=== PATIENT | male | born 1990 | race African-American/Black ===

== ENCOUNTER 2016-10-14 01:58 | Emergency (ER) | payer SELFPAY ==
[~2016-10-14] VITALS: Ht 165.1 cm; Wt 66.4 kg
[2016-10-14] MEDS ORDERED: PERCOCET 5/325M1 TAB PO (03:06)
[2016-10-14] MEDS ORDERED: AUGMENTIN875TAB PO (03:06)
[2016-10-14 03:36] VITALS: BP 130/70
== END 2016-10-14 03:34 | disposition home or self-care (01) | DRG 153 ==
LOC: ED 01:58
DX: H66.92 Otitis media, unspecified, left ear (principal); F17.210 Nicotine dependence, cigarettes, uncomplicated

== ENCOUNTER 2016-12-11 23:30 | Emergency (ER) | payer SELFPAY ==
[~2016-12-11] VITALS: Ht 165.1 cm; Wt 68.4 kg
[~2016-12-11 23:30] MED LIST: AUGMENTIN875TAB PO; PERCOCET 5/325M1 TAB PO
[2016-12-12] MEDS ORDERED: TRAMADOL HYDROC50 MG PO (00:22)
[2016-12-12 00:25] VITALS: BP 127/63
== END 2016-12-12 00:28 | disposition home or self-care (01) | DRG 605 ==
LOC: ED 23:30
DX: S60.221A Contusion of right hand, initial encounter (principal); W22.09XA Striking against other stationary object, initial encounter; Y92.009 Unspecified place in unspecified non-institutional (private) residence as the place of occurrence of the external cause

== ENCOUNTER 2017-04-10 23:03 | Emergency (ER) | payer SELFPAY ==
[~2017-04-10] VITALS: Ht 165.1 cm; Wt 64.6 kg
[~2017-04-10 23:03] MED LIST changes: +TRAMADOL HYDROC50 MG PO
[2017-04-11] MEDS ORDERED: MEDDOSEPAK PO (00:23)
[2017-04-11] MEDS ORDERED: PEPCID20 MG PO (00:23)
[2017-04-11] MEDS ORDERED: BENADRYL 50MG C50 MG PO (00:23)
[2017-04-11 00:38] VITALS: BP 132/58
== END 2017-04-11 00:40 | disposition home or self-care (01) | DRG 607 ==
LOC: ED 23:03
DX: L23.5 Allergic contact dermatitis due to other chemical products (principal); L29.9 Pruritus, unspecified; Y93.89 Activity, other specified; Y92.89 Other specified places as the place of occurrence of the external cause

== ENCOUNTER 2017-09-19 20:38 | Emergency (ER) | payer SELFPAY ==
[~2017-09-19] VITALS: Ht 165.1 cm; Wt 65.5 kg
[~2017-09-19 20:38] MED LIST changes: +BENADRYL 50MG C50 MG PO; +MEDDOSEPAK PO; +PEPCID20 MG PO
[2017-09-19 21:29] LABS: URINE BILIRUBIN - DIPSTICK NEGATIVE (NEGATIVE); URINE BLOOD DIPSTICK NEGATIVE (NEGATIVE); URINE CLARITY SL CLOUDY; URINE COLOR YELLOW; URINE GLUCOSE - DIPSTICK NEGATIVE (NEGATIVE); URINE KETONE NEGATIVE (NEGATIVE); URINE LEUK ESTERASE SMALL (NEGATIVE); URINE NITRITE - DIPSTICK NEGATIVE (Negative); URINE PROTEIN - DIPSTICK NEGATIVE (NEG-TRACE); URINE SPECIFIC GRAVITY >=1.030; URINE UROBILINOGEN - DIPSTICK 0.2 E.U./dL (0.2)
[2017-09-19 21:35] LABS: URINE WBC 50-100 WBC/hpf (0-5)
[2017-09-19] MEDS ORDERED: BACTRIM DS1 TAB PO (21:46)
[2017-09-19 22:31] VITALS: BP 127/80
== END 2017-09-19 22:32 | disposition home or self-care (01) | DRG 690 ==
LOC: ED 20:38
PROVIDERS: Emergency Medicine
DX: N34.2 Other urethritis (principal); F17.210 Nicotine dependence, cigarettes, uncomplicated

== ENCOUNTER 2018-07-01 20:02 | Emergency (ER) | payer SELFPAY ==
[~2018-07-01] VITALS: Ht 165.1 cm; Wt 66.0 kg
[~2018-07-01 20:02] MED LIST changes: +BACTRIM DS1 TAB PO
[2018-07-01 20:59] LABS: HEMOGLOBIN 14.8 g/dl (14.0-18.0); IMMATURE GRANULOCYTES 0.3 % (0.0-5.0); MEAN CELL VOLUME 98.2 fL CALC (80.0-100.0); MEAN CORPUSCULAR HGB 33.8 pG CALC (26.0-32.0); MEAN CORPUSCULAR HGB CONC 34.4 g/L CALC (32.0-36.0); NEUT# 4.44 thou/uL (1.82-7.42); RED BLOOD COUNT 4.38 mill/uL (4.70-6.10); RED CELL DISTRI WIDTH 12.8 % (11.5-15.5)
[2018-07-01 21:02] LABS: URINE BLOOD DIPSTICK NEGATIVE (NEGATIVE); URINE COLOR YELLOW; URINE GLUCOSE - DIPSTICK NEGATIVE (NEGATIVE); URINE KETONE TRACE mg/dL (NEGATIVE); URINE LEUK ESTERASE NEGATIVE (NEGATIVE); URINE NITRITE - DIPSTICK NEGATIVE (Negative); URINE PROTEIN - DIPSTICK 30 mg/dL (NEG-TRACE); URINE SPECIFIC GRAVITY >=1.030; URINE UROBILINOGEN - DIPSTICK 0.2 E.U./dL (0.2)
[2018-07-01 21:19] LABS: URINE BILIRUBIN - DIPSTICK NEGATIVE (NEGATIVE)
[2018-07-01 21:23] LABS: ALBUMIN 5.1 g/dL (3.2-5.0); ALKALINE PHOSPHATASE 75 u/l (38-126); AMYLASE 43 u/l (30-110); ANION GAP 18 (6-22 (CALC)); BILIRUBIN, TOTAL 0.6 mg/dL (0.0-1.4); BUN 15 mg/dL (9-20); BUN/CREATININE RATIO 13 (12-20 (CALC)); CARBON DIOXIDE 26 mmol/l (22-30); CHLORIDE 100 mmol/l (95-108); CREATININE 1.1 mg/dL (0.7-1.3); GFR > 60 ML/MIN (>=60 (CALC)); GFR FOR AFR.AMER. > 60 ML/MIN (>=60 (CALC)); LIPASE 39 u/l (23-300); POTASSIUM 4.4 mmol/l (3.5-5.1); SGOT/AST 46 u/l (17-59); SODIUM 139 mmol/l (137-146)
[2018-07-01 21:24] LABS: URINE BACTERIA FEW hpf; URINE MUCUS MANY hpf (NONE-FEW); URINE WBC 0-2 WBC/hpf (0-5)
[2018-07-01] MEDS ORDERED: BACTRIM DS1 TAB PO ×2 (22:49→23:30)
[2018-07-01] MEDS ORDERED: CLONIDINE0.1 MG PO ×2 (22:49→23:30)
[2018-07-01 23:17] VITALS: BP 160/90
== END 2018-07-01 23:35 | disposition home or self-care (01) | DRG 392 ==
LOC: ED 20:02
PROVIDERS: Emergency Medicine
DX: K52.9 Noninfective gastroenteritis and colitis, unspecified (principal); I10 Essential (primary) hypertension; F17.200 Nicotine dependence, unspecified, uncomplicated
CPT/HCPCS: Q9967

== ENCOUNTER 2018-08-28 18:43 | Emergency (ER) | payer SELFPAY ==
[~2018-08-28] VITALS: Ht 165.1 cm; Wt 66.0 kg
[~2018-08-28 18:43] MED LIST changes: +CLONIDINE0.1 MG PO
[2018-08-28] MEDS ORDERED: AMOXICILLIN500 MG PO (19:51)
[2018-08-28 20:08] VITALS: BP 131/80
== END 2018-08-28 20:08 | disposition home or self-care (01) | DRG 603 ==
LOC: ED 18:43
DX: L08.9 Local infection of the skin and subcutaneous tissue, unspecified (principal); S61.212A Laceration without foreign body of right middle finger without damage to nail, initial encounter; F17.210 Nicotine dependence, cigarettes, uncomplicated; I10 Essential (primary) hypertension; W26.8XXA Contact with other sharp object(s), not elsewhere classified, initial encounter; Y93.89 Activity, other specified; Y92.89 Other specified places as the place of occurrence of the external cause; Y99.0 Civilian activity done for income or pay

== ENCOUNTER 2018-10-04 08:47 | Emergency (ER) | payer OTHER ==
[~2018-10-04] VITALS: Ht 165.1 cm; Wt 70.0 kg
[~2018-10-04 08:47] MED LIST changes: +AMOXICILLIN500 MG PO
[2018-10-04] MEDS ORDERED: TORADOL PO (10:39)
[2018-10-04] MEDS ORDERED: FLEXERIL PO (10:39)
[2018-10-04 10:42] VITALS: BP 137/73
== END 2018-10-04 10:41 | disposition home or self-care (01) | DRG 556 ==
LOC: ED 08:47
DX: M25.552 Pain in left hip (principal); M25.562 Pain in left knee; T14.8XXA Other injury of unspecified body region, initial encounter; I10 Essential (primary) hypertension; F17.210 Nicotine dependence, cigarettes, uncomplicated; V43.63XA Car passenger injured in collision with pick-up truck in traffic accident, initial encounter

== ENCOUNTER 2019-04-14 07:11 | Emergency (ER) | payer SELFPAY ==
[~2019-04-14] VITALS: Ht 165.1 cm; Wt 70.0 kg
[~2019-04-14 07:11] MED LIST changes: +FLEXERIL PO; +TORADOL PO
[2019-04-14 08:18] LABS: HEMATOCRIT 45.6 % (39.0-50.0); HEMOGLOBIN 15.2 g/dl (14.0-18.0); IMMATURE GRANULOCYTES 0.3 % (0.0-5.0); MEAN CELL VOLUME 99.1 fL CALC (80.0-100.0); MEAN CORPUSCULAR HGB CONC 33.3 g/L CALC (32.0-36.0); NEUT# 4.77 thou/uL (1.82-7.42); RED BLOOD COUNT 4.6 mill/uL (4.70-6.10); RED CELL DISTRI WIDTH 13.1 % (11.5-15.5)
[2019-04-14 08:30] LABS: ALBUMIN 4.7 g/dL (3.2-5.0); ALKALINE PHOSPHATASE 64 u/l (38-126); ANION GAP 14 (6-22 (CALC)); BUN 11 mg/dL (9-20); BUN/CREATININE RATIO 10 (12-20 (CALC)); CARBON DIOXIDE 29 mmol/l (22-30); CHLORIDE 98 mmol/l (95-108); GFR > 60 ML/MIN (>=60 (CALC)); GFR FOR AFR.AMER. > 60 ML/MIN (>=60 (CALC)); POTASSIUM 3.7 mmol/l (3.5-5.1); SGOT/AST 45 u/l (17-59); SODIUM 138 mmol/l (137-146); TOTAL PROTEIN 8.1 g/dL (6.3-8.2)
[2019-04-14 08:31] LABS: BILIRUBIN, TOTAL 0.6 mg/dL (0.0-1.4)
[2019-04-14 10:33] VITALS: BP 155/94
== END 2019-04-14 10:43 | disposition home or self-care (01) | DRG 305 ==
LOC: ED 07:11
PROVIDERS: Family Medicine
DX: I10 Essential (primary) hypertension (principal); F17.210 Nicotine dependence, cigarettes, uncomplicated

== ENCOUNTER 2019-05-26 08:51 | Emergency (ER) | payer SELFPAY ==
[2019-05-26] MEDS ORDERED: NEOMYCIN/POLYMY1 SOL AS (09:22)
[2019-05-26 09:29] VITALS: BP 122/70
== END 2019-05-26 09:35 | disposition home or self-care (01) | DRG 156 ==
LOC: ED 08:51
DX: H60.92 Unspecified otitis externa, left ear (principal); I10 Essential (primary) hypertension; F17.200 Nicotine dependence, unspecified, uncomplicated

== ENCOUNTER 2019-07-17 | Emergency (ER) | payer BC, OTHER ==
[~2019-07-17] MED LIST changes: +NEOMYCIN/POLYMY1 SOL AS
== END 2019-07-17 19:35 | disposition home or self-care (01) | DRG 552 ==
DX: M54.9 Dorsalgia, unspecified (principal); I10 Essential (primary) hypertension; F17.200 Nicotine dependence, unspecified, uncomplicated; V43.52XA Car driver injured in collision with other type car in traffic accident, initial encounter

== ENCOUNTER 2019-07-29 | Emergency (ER) | payer BC ==
[2019-07-29] MEDS ORDERED: MOTRIN400 MG PO (15:41)
== END 2019-07-29 16:26 | disposition home or self-care (01) | DRG 159 ==
DX: S01.512A Laceration without foreign body of oral cavity, initial encounter (principal); I10 Essential (primary) hypertension; F17.210 Nicotine dependence, cigarettes, uncomplicated; X58.XXXA Exposure to other specified factors, initial encounter

== ENCOUNTER 2021-05-29 19:16 | Emergency (ER) | payer SELFPAY ==
[~2021-05-29] VITALS: Ht 165.1 cm; Wt 64.0 kg
[~2021-05-29 19:16] MED LIST changes: +MOTRIN400 MG PO
[2021-05-29 21:01] VITALS: BP 147/95
== END 2021-05-29 20:31 | disposition short-term general hospital (02) | DRG 605 ==
LOC: ED 19:16
DX: S51.811A Laceration without foreign body of right forearm, initial encounter (principal); I10 Essential (primary) hypertension; F17.200 Nicotine dependence, unspecified, uncomplicated; W25.XXXA Contact with sharp glass, initial encounter; Y92.009 Unspecified place in unspecified non-institutional (private) residence as the place of occurrence of the external cause

== ENCOUNTER 2021-06-01 14:41 | Emergency (ER) | payer SELFPAY ==
[~2021-06-01] VITALS: Ht 165.1 cm; Wt 77.2 kg
[2021-06-01 14:42] VITALS: BP 113/60
== END 2021-06-01 16:05 | disposition left against medical advice (07) | DRG 951 ==
LOC: ED 14:41
DX: Z91.19 Patient's noncompliance with other medical treatment and regimen (principal)

== ENCOUNTER 2021-06-08 16:54 | Emergency (ER) | payer SELFPAY ==
[~2021-06-08] VITALS: Ht 165.1 cm; Wt 65.0 kg
[2021-06-08 17:33] VITALS: BP 110/70
== END 2021-06-08 17:44 | disposition home or self-care (01) | DRG 950 ==
LOC: ED 16:54
DX: S51.811D Laceration without foreign body of right forearm, subsequent encounter (principal); X58.XXXD Exposure to other specified factors, subsequent encounter; I10 Essential (primary) hypertension; F17.200 Nicotine dependence, unspecified, uncomplicated